=== PATIENT | female | born 1970 | race Caucasian/White ===

== ENCOUNTER 2019-05-21 19:05 | Emergency (ER) | payer OTHER ==
[~2019-05-21] VITALS: Ht 152.4 cm; Wt 81.7 kg
[2019-05-21 19:28] VITALS: BP 131/59; Ht 152.4 cm; Wt 81.7 kg
== END 2019-05-21 20:42 | disposition home or self-care (01) ==
LOC: ED 19:05
DX: F41.9 Anxiety disorder, unspecified (principal); Z88.6 Allergy status to analgesic agent; Z88.5 Allergy status to narcotic agent